=== PATIENT | female | born 1990 | race African-American/Black ===

== ENCOUNTER 2019-09-23 22:19 | Observation (INO) ==
--- OUTSIDE RECORDS SUMMARY | 2019-09-23 22:21 | External Medical Summary | Continuity of Care Document ---
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 GALINA Melchor Start: 09-May-2016 Quantity: 1 Refills: 0 Procedures Procedures not documented Immunizations Immunizations not documented Family History Unknown Family Member No pertinent family history (V41.89) (Z78.9) Status: Active Comments: Family History Social History - Smoking Status Never smoked tobacco Plan of Treatment Planned Observations Planned Goals not documented Results No Known Results Results not documented Encounters Appointment; Lin Melchor PA-C 07-Nov-2016 9:00 Encounter Diagnosis: Problem not documented
--- OUTSIDE RECORDS SUMMARY | 2019-09-23 22:22 | External Medical Summary | Continuity of Care Document ---
:1990 Author Name Roxi Valentin Address Unavailable Unavailable , Care Team Providers Name Role Phone [email or web address] [place] VALORIE Valentin, T Unavailable Unavailable Unavailable Unavailable [...] Unknown Family Member No pertinent family history (V48.89) (Z78.9) Status: Active Comments: Family History Social History - Smoking Status Never smoked tobacco Plan of Treatment Planned Observations Planned Goals not documented Results No Known Results Results not documented Encounters Appointment; Lin Melchor PA-C 07-Nov-2016 9:00 Encounter Diagnosis: Problem not documented
[2019-09-23] MEDS ORDERED: SODIUM CHLORIDE 0.9% 500 ML IV SCH (22:30)
[2019-09-23] MEDS ORDERED: dilTIAZem HCl 5 MG/ML 5 ML VIAL IV STA ×2 (22:32→23:01)
--- NOTE | 2019-09-23 22:32 | Emergency Department Note ---
History of Present Illness General Chief complaint: Arrhythmia/Palpitations Stated complaint: HEART RACING SOB Time Seen by Provider: 09/23/19 22:26 Source: patient Mode of arrival: ambulatory Limitations: no limitations History of Present Illness Maximum Pain Intensity: 6 The patient is a 29-year-old female who presented to the emergency department for evaluation of palpitations. The patient states that she started noticing palpitations with a fast heart rate at approximately 6 PM this evening. The patient was unloading groceries. She describes difficulty breathing with exertional dyspnea. She denies any specific chest discomfort. She denies having any leg swelling or leg pain. She has never had similar symptoms in the past. The patient was not seen by her primary care provider prior to arrival. The patient describes worsening symptoms with exertion but also has significant symptoms at rest. She is not had any recent travel or fever. She had no recent nausea vomiting or diarrhea. 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 and A total of 10 systems reviewed and were otherwise negative Physical Exam Vital Signs Vital Signs - 24 hr 09/23/19 22:23 09/23/19 22:34 09/23/19 22:37 Temperature 36.9 C Temperature Source Oral Pulse Rate 120 H 179 H 159 H Pulse Rate [Right Finger] Pulse Rate from SpO2 Sensor Respiratory Rate 20 22 19 Respiratory Effort / Characteristics Non-Labored Respiratory Depth Normal Blood Pressure 151/108 H 173/133 H Blood Pressure [Right Arm] Blood Pressure Mean 122 139 Blood Pressure Mean [Right Arm] Blood Pressure Position [Right Arm] Pulse Oximetry 93 Oxygen Delivery Method Room Air Sepsis Recent Fever Within 48 Hours No Sepsis Action Taken by Nursing No Action Required 09/23/19 22:40 09/23/19 22:42 09/23/19 22:46 Temperature Temperature Source Pulse Rate 157 H 117 H Pulse Rate [Right Finger] Pulse Rate from SpO2 Sensor 86 Respiratory Rate 13 21 Respiratory Effort / Characteristics Respiratory Depth Blood Pressure 139/86 Blood Pressure [Right Arm] Blood Pressure Mean 120 Blood Pressure Mean [Right Arm] Blood Pressure Position [Right Arm] Pulse Oximetry 99 97 Oxygen Delivery Method Room Air Sepsis Recent Fever Within 48 Hours Sepsis Action Taken by Nursing 09/23/19 22:50 09/23/19 23:00 09/23/19 23:01 Temperature Temperature Source Pulse Rate 99 H 129 H 122 H Pulse Rate [Right Finger] Pulse Rate from SpO2 Sensor 88 82 Respiratory Rate 23 22 16 Respiratory Effort / Characteristics Respiratory Depth Blood Pressure Blood Pressure [Right Arm] Blood Pressure Mean Blood Pressure Mean [Right Arm] Blood Pressure Position [Right Arm] Pulse Oximetry 97 100 100 Oxygen Delivery Method Sepsis Recent Fever Within 48 Hours Sepsis Action Taken by Nursing 09/23/19 23:02 09/23/19 23:09 09/23/19 23:10 Temperature Temperature Source Pulse Rate 135 H 112 H Pulse Rate [Right Finger] 124 H Pulse Rate from SpO2 Sensor 100 H 87 Respiratory Rate 21 22 19 Respiratory Effort / Characteristics Respiratory Depth Blood Pressure 116/95 Blood Pressure [Right Arm] 116/95 Blood Pressure Mean 99 Blood Pressure Mean [Right Arm] 102 Blood Pressure Position [Right Arm] Lying Pulse Oximetry 99 99 99 Oxygen Delivery Method Room Air Sepsis Recent Fever Within 48 Hours Sepsis Action Taken by Nursing 09/23/19 23:17 09/23/19 23:20 09/23/19 23:26 Temperature Temperature Source Pulse Rate 112 H 111 H 99 H Pulse Rate [Right Finger] 107 H Pulse Rate from SpO2 Sensor 91 H 92 H Respiratory Rate 21 19 15 Respiratory Effort / Characteristics Respiratory Depth Blood Pressure 130/107 H Blood Pressure [Right Arm] 130/107 H Blood Pressure Mean 112 Blood Pressure Mean [Right Arm] 114 Blood Pressure Position [Right Arm] Pulse Oximetry 98 97 98 Oxygen Delivery Method Sepsis Recent Fever Within 48 Hours Sepsis Action Taken by Nursing 09/23/19 23:30 09/23/19 23:32 09/23/19 23:35 Temperature Temperature Source Pulse Rate 104 H 119 H 117 H Pulse Rate [Right Finger] Pulse Rate from SpO2 Sensor Respiratory Rate 16 18 15 Respiratory Effort / Characteristics Respiratory Depth Blood Pressure 128/74 Blood Pressure [Right Arm] Blood Pressure Mean 103 Blood Pressure Mean [Right Arm] Blood Pressure Position [Right Arm] Pulse Oximetry 98 97 96 Oxygen Delivery Method Sepsis Recent Fever Within 48 Hours Sepsis Action Taken by Nursing 09/23/19 23:36 09/23/19 23:40 09/23/19 23:50 Temperature Temperature Source Pulse Rate 129 H 107 H 108 H Pulse Rate [Right Finger] Pulse Rate from SpO2 Sensor Respiratory Rate 18 16 27 H Respiratory Effort / Characteristics Respiratory Depth Blood Pressure Blood Pressure [Right Arm] Blood Pressure Mean Blood Pressure Mean [Right Arm] Blood Pressure Position [Right Arm] Pulse Oximetry 88 L 97 98 Oxygen Delivery Method Sepsis Recent Fever Within 48 Hours Sepsis Action Taken by Nursing 09/24/19 00:00 09/24/19 00:01 09/24/19 00:02 Temperature Temperature Source Pulse Rate 120 H 118 H Pulse Rate [Right Finger] 119 H Pulse Rate from SpO2 Sensor Respiratory Rate 15 18 19 Respiratory Effort / Characteristics Respiratory Depth Blood Pressure 117/87 Blood Pressure [Right Arm] 117/87 Blood Pressure Mean 93 Blood Pressure Mean [Right Arm] 97 Blood Pressure Position [Right Arm] Pulse Oximetry 98 100 99 Oxygen Delivery Method Sepsis Recent Fever Within 48 Hours Sepsis Action Taken by Nursing 09/24/19 00:10 09/24/19 00:30 09/24/19 00:31 Temperature Temperature Source Pulse Rate 117 H 99 H Pulse Rate [Right Finger] 108 H Pulse Rate from SpO2 Sensor Respiratory Rate 17 21 19 Respiratory Effort / Characteristics Respiratory Depth Blood Pressure 133/86 Blood Pressure [Right Arm] 133/86 Blood Pressure Mean 92 Blood Pressure Mean [Right Arm] 101 Blood Pressure Position [Right Arm] Pulse Oximetry 99 Oxygen Delivery Method Sepsis Recent Fever Within 48 Hours Sepsis Action Taken by Nursing 09/24/19 00:40 09/24/19 00:50 Temperature Temperature Source Pulse Rate 88 81 Pulse Rate [Right Finger] Pulse Rate from SpO2 Sensor Respiratory Rate 16 14 Respiratory Effort / Characteristics Respiratory Depth Blood Pressure Blood Pressure [Right Arm] Blood Pressure Mean Blood Pressure Mean [Right Arm] Blood Pressure Position [Right Arm] Pulse Oximetry Oxygen Delivery Method Sepsis Recent Fever Within 48 Hours Sepsis Action Taken by Nursing GENERAL: Patient is awake alert in no acute distress patient is resting comfortably and showing no signs of anxiety EYES: The conjunctivae are clear. The pupils are round and reactive. EARS, NOSE, MOUTH AND THROAT: The nose is without any evidence of any deformity. Mucous membranes are moist. NECK: The neck is nontender and supple. RESPIRATORY: Normal respiratory effort is noted there is no evidence of wheezing rhonchi or rales CARDIOVASCULAR: Irregular and tachycardic heart sounds were noted to auscultation. No definite murmur was noted. GASTROINTESTINAL: The abdomen is soft. Abdomen is nontender. MUSCULOSKELETAL/EXTREMITIES: There is no evidence of gross deformity full range of motion is noted in the hips and shoulders. SKIN: There is no obvious evidence of any rash. There are no petechiae, pallor or cyanosis noted. NEUROLOGIC: Patient is awake alert and oriented x3. Course Administered Medications Discontinued Medications Aspirin (Ecotrin Ectab) 81 mg PO NOW STA Stop: 09/24/19 01:47 Last Admin: 09/24/19 02:14 Dose: 81 mg Documented by: [id number] Diltiazem HCl (Cardizem) 10 mg IV NOW STA Stop: 09/23/19 22:33 Last Admin: 09/23/19 22:40 Dose: 10 mg Documented by: [id number] Cosigned by: [id number] Diltiazem HCl (Cardizem) 10 mg IV NOW STA Stop: 09/23/19 23:02 Last Admin: 09/23/19 23:07 Dose: 10 mg Documented by: [id number] Cosigned by: [id number] Enoxaparin Sodium (Lovenox) 40 mg SQ QAM JAYLON Stop: 10/24/19 08:59 Last Admin: 09/24/19 09:46 Dose: Not Given Documented by: [id number] Sodium Chloride (Nss) 500 mls @ 999 mls/hr IV .Q31M JAYLON Stop: 09/23/19 23:00 Last Infusion: 09/23/19 23:09 Dose: 0 mls/hr Documented by: [id number] Admin: 09/23/19 22:40 Dose: 999 mls/hr Documented by: [id number] Diltiazem HCl 125 mg/ Dextrose 125 mls @ 5 mls/hr IV .Q24H [facility]; Protocol Stop: 10/23/19 23:29 Last Titration: 09/24/19 01:04 Dose: 0 mg/hr, 0 mls/hr Documented by: [id number] Cosigned by: [id number] Admin: 09/23/19 23:41 Dose: 5 mg/hr, 5 mls/hr Documented by: [id number] Cosigned by: [id number] Magnesium Sulfate/Dextrose (Magnesium Sulfate / D5w) 1 gm in 100 mls @ 100 mls/hr IV ONE ONE Stop: 09/24/19 00:51 Last Infusion: 09/24/19 00:57 Dose: 0 mls/hr Documented by: [id number] Admin: 09/23/19 23:57 Dose: 100 mls/hr Documented by: [id number] Lactated Ringer's (Lr) 1,000 mls @ 80 mls/hr IV .[id number] ONE Stop: 09/24/19 14:15 Last Infusion: 09/24/19 14:59 Dose: 0 mls/hr Documented by: [id number] Admin: 09/24/19 02:14 Dose: 80 mls/hr Documented by: [id number] Ioversol (Optiray 320 125ml) 125 ml IV ONCE PRN PRN Reason: Interaction Checking Stop: 09/28/19 00:28 Last Admin: 09/24/19 00:29 Dose: 118 ml Documented by: [id number] Metoprolol Succinate (Toprol Xl) 25 mg PO QAM JAYLON Stop: 10/24/19 08:59 Last Admin: 09/24/19 07:59 Dose: 25 mg Documented by: [id number] Metoprolol Tartrate (Lopressor) 25 mg PO NOW STA Stop: 09/24/19 00:03 Last Admin: 09/24/19 00:07 Dose: 25 mg Documented by: [id number] Perflutren Lipid Microsphere (Definity) 2 ml IV ONCE ONE Stop: 09/24/19 08:04 Last Admin: 09/24/19 08:04 Dose: 2 ml Documented by: [id number] Critical Care Time Critical Care Time: Yes Total Critical Care Time: 45 I have personally spent greater than 45 minutes of critical care time in the direct management of this patient. This includes bedside care, interpretation of diagnostic studies, and testing, discussion with consultants, patient, and family members, and other required patient management activities. This 45 minutes is in excess of all separately billable procedures. Medical Decision Making Differential Diagnosis Premature contractions, electrolyte abnormality, cardiac dysrhythmia, thyroid dysfunction, pulmonary embolism, infection, gastrointestinal, as well as other pathologies. Medical Records Attestation: I reviewed the patient's medical records. Home Medications Current Medication List: was personally reviewed by me Laboratory Data Attestation: I reviewed the patient's lab results. Result diagrams: 09/24/19 05:39 09/24/19 05:39 Lab Results 09/23/19 09/23/19 09/23/19 Range/Units 22:35 22:35 22:35 WBC 9.99 (4.8-10.8) K/uL RBC 5.48 H (4.2-5.4) M/uL Hgb 15.4 (12.0-16.0) g/dL Hct 44.9 (37-47) % MCV 81.9 (80-100) fL MCH 28.1 (25-34) pg MCHC 34.3 (32-36) g/dL RDW Std Deviation 39.4 (36.4-46.3) fL RDW Coeff of Rinku 13.1 (11.5-14.5) % Plt Count 311 (130-400) K/uL MPV 10.5 H (7.4-10.4) fL Immature Gran % (Auto) 0.2 % Neut % (Auto) 57.1 % Lymph % (Auto) 33.4 % [place] % (Auto) 7.8 % Eos % (Auto) 1.1 % Baso % (Auto) 0.4 % Immature Gran # (Auto) 0.02 (0.00-0.02) K/uL Neut # (Auto) 5.70 (1.4-6.5) K/uL Lymph # (Auto) 3.34 (1.2-3.4) K/uL [place] # (Auto) 0.78 H (0.11-0.59) K/uL Eos # (Auto) 0.11 (0-0.5) K/uL Baso # (Auto) 0.04 (0-0.2) K/uL PT 10.8 (9.0-12.0) Seconds INR 1.0 (0.9-1.1) APTT 30.0 (21.0-31.0) Seconds PTT Ratio 1.1 Sodium 138 (136-145) mmol/L Potassium 4.0 (3.5-5.1) mmol/L Chloride 108 H (98-107) mmol/L Carbon Dioxide 26 (21-32) mmol/L Anion Gap 4.0 (3-11) BUN 12 (7-18) mg/dl Creatinine 0.86 (0.6-1.2) mg/dl Est Cr Clr Drug Dosing 161.1 ml/min Est GFR ( Amer) 105.8 Est GFR (Non-Af Amer) 91.3 BUN/Creatinine Ratio 13.5 (10-20) Glucose 89 (70-99) mg/dl Calcium 9.4 (8.5-10.1) mg/dl Magnesium 2.1 (1.8-2.4) mg/dl Total Bilirubin 0.4 (0.2-1) mg/dl AST 13 L (15-37) U/L ALT 23 (12-78) U/L Alkaline Phosphatase 70 (45-117) U/L Troponin I < 0.015 (0-0.045) ng/ml Total Protein 8.8 H (6.4-8.2) gm/dl Albumin 3.7 (3.4-5.0) gm/dl Globulin 5.1 H (2.5-4.0) gm/dl Albumin/Globulin Ratio 0.7 L (0.9-2) TSH 1.340 (0.300-4.500) uIu/ml HCG, Qual (Negative) Urine Color Urine Appearance (Clear) Urine pH (4.5-7.5) Ur Specific [place] (1.000-1.030) Urine Protein (Negative) Urine Glucose (UA) (Negative) Urine Ketones (Negative) Urine Blood (Negative) Urine Nitrite (Negative) Urine Bilirubin (Negative) Urine Urobilinogen (Negative) Ur Leukocyte Esterase (Negative) Urine WBC (Auto) (0-5) /hpf Urine RBC (Auto) (0-4) /hpf U Hyaline Cast (Auto) (0-5) /lpf U Epithel Cells (Auto) (0-5) /lpf Urine Bacteria (Auto) (Negative) Urine Opiates Screen (Neg) Ur Methadone, Qual (Neg) Urine Barbiturates (Neg) Ur Phencyclidine (PCP) (Neg) U Amphetamin/Meth Scrn (Neg) MDMA (Ecstasy) Screen (Neg) U Benzodiazepines Scrn (Neg) Ur Cocaine Metabolite (Neg) U Marijuana (THC) Screen (Neg) 09/23/19 09/23/19 09/23/19 Range/Units 22:35 Unknown Unknown WBC (4.8-10.8) K/uL RBC (4.2-5.4) M/uL Hgb (12.0-16.0) g/dL Hct (37-47) % MCV (80-100) fL MCH (25-34) pg MCHC (32-36) g/dL RDW Std Deviation (36.4-46.3) fL RDW Coeff of Rinku (11.5-14.5) % Plt Count (130-400) K/uL MPV (7.4-10.4) fL Immature Gran % (Auto) % Neut % (Auto) % Lymph % (Auto) % [place] % (Auto) % Eos % (Auto) % Baso % (Auto) % Immature Gran # (Auto) (0.00-0.02) K/uL Neut # (Auto) (1.4-6.5) K/uL Lymph # (Auto) (1.2-3.4) K/uL [place] # (Auto) (0.11-0.59) K/uL Eos # (Auto) (0-0.5) K/uL Baso # (Auto) (0-0.2) K/uL PT (9.0-12.0) Seconds INR (0.9-1.1) APTT (21.0-31.0) Seconds PTT Ratio Sodium (136-145) mmol/L Potassium (3.5-5.1) mmol/L Chloride (98-107) mmol/L Carbon Dioxide (21-32) mmol/L Anion Gap (3-11) BUN (7-18) mg/dl Creatinine (0.6-1.2) mg/dl Est Cr Clr Drug Dosing ml/min Est GFR ( Amer) Est GFR (Non-Af Amer) BUN/Creatinine Ratio (10-20) Glucose (70-99) mg/dl Calcium (8.5-10.1) mg/dl Magnesium (1.8-2.4) mg/dl Total Bilirubin (0.2-1) mg/dl AST (15-37) U/L ALT (12-78) U/L Alkaline Phosphatase (45-117) U/L Troponin I (0-0.045) ng/ml Total Protein (6.4-8.2) gm/dl Albumin (3.4-5.0) gm/dl Globulin (2.5-4.0) gm/dl Albumin/Globulin Ratio (0.9-2) TSH (0.300-4.500) uIu/ml HCG, Qual Negative (Negative) Urine Color Yellow Urine Appearance Clear (Clear) Urine pH 7.0 (4.5-7.5) Ur Specific [place] 1.014 (1.000-1.030) Urine Protein Negative (Negative) Urine Glucose (UA) Negative (Negative) Urine Ketones Negative (Negative) Urine Blood 2+ H (Negative) Urine Nitrite Negative (Negative) Urine Bilirubin Negative (Negative) Urine Urobilinogen Negative (Negative) Ur Leukocyte Esterase Trace H (Negative) Urine WBC (Auto) 1-5 (0-5) /hpf Urine RBC (Auto) 10-30 H (0-4) /hpf U Hyaline Cast (Auto) 0 (0-5) /lpf U Epithel Cells (Auto) >30 H (0-5) /lpf Urine Bacteria (Auto) Negative (Negative) Urine Opiates Screen Neg (Neg) Ur Methadone, Qual Neg (Neg) Urine Barbiturates Neg (Neg) Ur Phencyclidine (PCP) Neg (Neg) U Amphetamin/Meth Scrn Neg (Neg) MDMA (Ecstasy) Screen Neg (Neg) U Benzodiazepines Scrn Neg (Neg) Ur Cocaine Metabolite Neg (Neg) U Marijuana (THC) Screen Neg (Neg) Imaging Data Radiologist's Impression: SINGLE VIEW CHEST CLINICAL HISTORY: Generalized weakness. FINDINGS: An AP, portable, upright chest radiograph is obtained. No prior studies are available for comparison at the time of dictation. The examination is degraded by portable technique and large body habitus. The cardiomediastinal silhouette is unremarkable. The lungs and pleural spaces are clear. No pneumothorax is seen. The bony thorax is grossly intact. IMPRESSION: No active disease in the chest. ACT 112: Negative or not required by law. Electronically signed by: José Antonio Groves M.D. 09/23/2019 10:54 PM Dictated: 09/23/192252 Transcribed: 09/23/192252 ECG Data Attestation: I personally reviewed and interpreted this ECG as follows: Indication: + palpitations Rate (beats per minute): 153 Additional Comments: EKG was obtained in the emergency department. My interpretation is atrial fibrillation with rapid ventricular response. 153 bpm. There were no PVCs. There were no acute ST segment elevations noted. No previous tracing was available. Blood Pressure Blood Pressure Findings: Normal blood pressure Blood Pressure Disposition: further management by hospitalist MDM Narrative The patient is a 29-year-old female who presented to the emergency department for an evaluation of palpitations. The patient noted an acute onset of palpitations earlier today around 6 PM when she was unloading groceries. The symptoms have been constant. The patient was found to be in atrial fibrillation upon arrival to the emergency department. She was treated with IV fluids and IV Cardizem. She was also given IV magnesium. I discussed the patient's laboratory and radiographic studies with her. Given her age and comorbidities she is not at high risk for stroke but she has never had atrial fibrillation before and she continues to have a rapid ventricular response. She was then placed on Cardizem drip. I discussed her case with the on-call [facility] hospitalist group. They have agreed to evaluate the patient in the emergency department for further management and disposition. Impression & Plan Atrial fibrillation with rapid ventricular response, Palpitations, SOB (shortness of breath) Discharge Plan Visit Data *Final* Discharge Date/Time: 09/24/19 01:30 Chief Complaint: Arrhythmia/Palpitations Stated Complaint: HEART RACING SOB ED Provider: Miguelito Chinchilla Discharge Problem: Atrial fibrillation with rapid ventricular response, Palpitations, SOB (shortness of breath) Patient Disposition: Admitted As Inpatient Discharge Instructions Interventions: ED Discharge Assessment Last Done: 09/24/19 01:30
[2019-09-23 22:49] LABS: Basophils # (auto) 0.04 K/uL (0-0.2); Basophils % (auto) 0.4 %; Eosinophils # (auto) 0.11 K/uL (0-0.5); Eosinophils % (auto) 1.1 %; Hematocrit (blood only) 44.9 % (37-47); Hemoglobin 15.4 g/dL (12.0-16.0); Immature Granulocytes # (auto) 0.02 K/uL (0.00-0.02); Immature Granulocytes % (auto) 0.2 %; Lymphocytes # (auto) 3.34 K/uL (1.2-3.4); Lymphocytes % (auto) 33.4 %; Mean Corpuscular Hemoglobin 28.1 pg (25-34); Mean Corpuscular Hgb Conc 34.3 g/dL (32-36); Mean Corpuscular Volume 81.9 fL (80-100); Mean Platelet Volume 10.5 fL (7.4-10.4); Monocytes # (auto) 0.78 K/uL (0.11-0.59); Monocytes % (auto) 7.8 %; Neutrophils % (auto) 57.1 %; Platelet Count 311 K/uL (130-400); RDW Coefficient of Variation 13.1 % (11.5-14.5); RDW Standard Deviation 39.4 fL (36.4-46.3); Red Blood Count 5.48 M/uL (4.2-5.4); White Blood Count 9.99 K/uL (4.8-10.8)
--- NOTE | 2019-09-23 22:55 | XRay Report ---
SINGLE VIEW CHEST CLINICAL HISTORY: Generalized weakness. FINDINGS: An AP, portable, upright chest radiograph is obtained. No prior studies are available for c omparison at the time of dictation. The examination is degraded by portable technique and large body habitus. The cardiomediastinal silhouette is unremarkable. The lungs and pleural spaces are clear. N o pneumothorax is seen. The bony thorax is grossly intact. IMPRESSION: No active disease in the chest. ACT 112: Negative or not required by law. Electronically signed by: José Antonio Groves M.D. 09/23/2019 10:54 PM
[2019-09-23 23:03] LABS: Partial Thromboplastin Ratio 1.1; Prothrombin Time 10.8 Seconds (9.0-12.0)
[2019-09-23 23:07] LABS: Alanine Aminotransferase 23 U/L (12-78); Albumin Level 3.7 gm/dl (3.4-5.0); Aspartate Aminotransferase 13 U/L (15-37); BUN Creatinine Ratio 13.5 (10-20); Blood Urea Nitrogen 12 mg/dl (7-18); Calcium 9.4 mg/dl (8.5-10.1); Carbon Dioxide 26 mmol/L (21-32); Chloride 108 mmol/L (98-107); Creatinine Clr Calc Pharmacy 161.1 ml/min; Est GFR (African American) 105.8; Est GFR (Non-African American) 91.3; Glucose 89 mg/dl (70-99); Magnesium 2.1 mg/dl (1.8-2.4); Sodium 138 mmol/L (136-145)
[2019-09-23 23:08] LABS: Pregnancy Test, Serum Negative (Negative)
[2019-09-23 23:18] LABS: Albumin Globulin Ratio 0.7 (0.9-2); Alkaline Phosphatase 70 U/L (45-117); Bilirubin,Total 0.4 mg/dl (0.2-1); Globulin 5.1 gm/dl (2.5-4.0); Total Protein 8.8 gm/dl (6.4-8.2); Troponin I < 0.015 ng/ml (0-0.045)
[2019-09-23] MEDS ORDERED: dilTIAZem HCL 125 MG in DEXTROSE 5% 100 ML IV SCH (23:30)
[2019-09-23] MEDS ORDERED: STAT IV Infusion **Titration per Protocol STA (23:30)
[2019-09-23 23:31] LABS: Appearance Urine Clear (Clear); Bacteria Urine Automated Negative (Negative); Bilirubin Urine Negative (Negative); Blood Urine 2+ (Negative); Cast Urine Automated 0 /lpf (0-5); Color Urine Yellow; Epithelial Cell Urine Auto >30 /lpf (0-5); Glucose Urine UA Negative (Negative); Ketones Urine Negative (Negative); Leukocyte Esterase Urine Trace (Negative); Nitrite Urine Negative (Negative); Protein Urine Negative (Negative); Specific Gravity Urine 1.014 (1.000-1.030); Urobilinogen Urine Negative (Negative)
[2019-09-23] MEDS ORDERED: MAGNESIUM SULFATE / D5W 1 GM/100 ML BAG IV ONE (23:52)
[2019-09-24] MEDS ORDERED: METOPROLOL TARTRATE 25 MG TAB PO STA (00:02)
[2019-09-24] MEDS ORDERED: OPTIRAY 320 125ml IV PRN (00:29)
--- NOTE | 2019-09-24 01:10 | History & Physical Report ---
Date of Service September 24, 2019 Assessment & Plan (1) PAF (paroxysmal atrial fibrillation): Currently NSR at the ER after initial intervention Unclear precipitant OBS PCU Oral beta-namita for rate control TTE, Cardiology consult RE PAF Hold off on anticoagulation for now until patient seen by Cardiology given low [id number] score of at least 1. DVT prophylaxis. Lovenox subcu Full code Text document was generated using [employer] voice recognition software. It may contain grammatical or spelling errors. Kindly contact undersigned for clarification of any documentation item in question. History of Present Illness Chief Complaint: Palpitations, S OB Primary Care Provider: NO PCP History obtained from patient and records. No significant medical history. 3 years history of intermittent palpitations with shortness of breath, short- lived, usually on exertion and relieved by rest, may be occurring at a frequency of 3 times a year. No consultations done. Last night patient arrived home after doing groceries when she experienced palpitations and shortness of breath without chest pain. No unusual cough, fever, chills symptoms. No unusual stress. No inordinate caffeine intake. Patient noted to be in rapid A. fib upon arrival at the ER Cardizem bolus and drip started at the ER. Oral Lopressor given at the ER. Patient subsequently converted to normal sinus rhythm. Medical History as above Surgical History : None Family History : No heart disease, no stroke as per patient Personal/Social history : Non-smoker, occasional EtOH intake, [employer] employee Allergies Allergy/AdvReac Type Severity Reaction Status Date / Time pollen extracts Allergy Mild standard Verified 09/23/19 22:37 seasonal allergy symptoms Home Medications Home Medications Medication Instructions Recorded Confirmed Type No Known Home Medications 09/23/19 09/23/19 History Past Med/Surg History Social History (Updated 09/23/19 @ 22:32 by Miguelito Chinchilla DO) Preferred Language: Pashto Communication Ability: Effective Systems Support Specialist Required: No Beliefs That Will Affect Care: None Current Living Situation: Significant Other Other Information That Helps Us Care for You: No Feels Safe at Home: Yes Safety Concerns: Feels Safe At This Time Smoking Status: Never smoker Hx Alcohol Use: Yes Hx Substance Use: No Review of Systems Review of Systems: As per HPI, all 10 systems reviewed, all other ROS negative Physical Exam Physical Exam: GENERAL: Comfortable, pleasant, obese, no respiratory distress SKIN: Normal color, warm HEENT: [place] palpebral conjunctivae, no ptosis, dry buccal mucosa NECK : Supple, short neck, no tenderness CHEST : CTA, no tenderness HEART : RRR, no obvious murmurs ABDOMEN: Some distention, nontender EXTREMITIES : No LE swelling/tenderness, no other conspicuous deformities noted NEUROLOGIC : Coherent, no facial asymmetry, no other gross focality Results & Data Results & Data ([facility]) Vital Signs (Past 12 Hours) Vital Signs Temp Pulse Pulse Resp BP BP Pulse Ox 09/24/19 00:50 81 14 09/24/19 00:40 88 16 09/24/19 00:31 108 H 19 133/86 99 09/24/19 00:30 99 H 21 133/86 09/24/19 00:10 117 H 17 09/24/19 00:02 119 H 19 117/87 99 09/24/19 00:01 118 H 18 117/87 100 09/24/19 00:00 120 H 15 98 09/23/19 23:50 108 H 27 H 98 09/23/19 23:40 107 H 16 97 09/23/19 23:36 129 H 18 88 L 09/23/19 23:35 117 H 15 128/74 96 09/23/19 23:32 119 H 18 97 09/23/19 23:30 104 H 16 98 09/23/19 23:26 99 H 107 H 15 130/107 H 130/107 H 98 09/23/19 23:20 111 H 19 97 09/23/19 23:17 112 H 21 98 09/23/19 23:10 112 H 19 116/95 99 09/23/19 23:09 124 H 22 116/95 99 09/23/19 23:02 135 H 21 99 09/23/19 23:01 122 H 16 100 09/23/19 23:00 129 H 22 100 09/23/19 22:50 99 H 23 97 09/23/19 22:46 117 H 21 139/86 97 09/23/19 22:42 99 09/23/19 22:40 157 H 13 09/23/19 22:37 159 H 19 09/23/19 22:34 179 H 22 173/133 H 09/23/19 22:23 36.9 C 120 H 20 151/108 H 93 Laboratory Results Laboratory Results WBC 9.99 K/uL (4.8-10.8) 09/23/19 22: RBC 5.48 M/uL (4.2-5.4) H 09/23/19 22:35 Hgb 15.4 g/dL (12.0-16.0) 09/23/19 22: Hct 44.9 % (37-47) 09/23/19 22: MCV 81.9 fL (80-100) 09/23/19 22: MCH 28.1 pg (25-34) 09/23/19 22: MCHC 34.3 g/dL (32-36) 09/23/19 22: RDW Std Deviation 39.4 fL (36.4-46.3) 09/23/19: RDW Coeff of Rinku 13.1 % (11.5-14.5) 09/23/19: Plt Count 311 K/uL (130-400) 09/23/19: MPV 10.5 fL (7.4-10.4) H 09/23/19 22:35 Immature Gran % (Auto) 0.2 % 09/23/19 22:35 Neut % (Auto) 57.1 % 09/23/19 22:35 Lymph % (Auto) 33.4 % 09/23/19 22:35 [place] % (Auto) 7.8 % 09/23/19 22:35 Eos % (Auto) 1.1 % 09/23/19:35 Baso % (Auto) 0.4 % 09/23/19:35 Immature Gran # (Auto) 0.02 K/uL (0.00-0.02) 09/23/19 22:35 Neut # (Auto) 5.70 K/uL (1.4-6.5) 09/23/19 22:35 Lymph # (Auto) 3.34 K/uL (1.2-3.4) 09/23/19 22:35 [place] # (Auto) 0.78 K/uL (0.11-0.59) H 09/23/19 22:35 Eos # (Auto) 0.11 K/uL (0-0.5) 09/23/19 22:35 Baso # (Auto) 0.04 K/uL (0-0.2) 09/23/19 22:35 PT 10.8 Seconds (9.0-12.0) 09/23/19 22:35 INR 1.0 (0.9-1.1) 09/23/19 22:35 APTT 30.0 Seconds (21.0-31.0) 09/23/19 22:35 PTT Ratio 1.1 09/23/19 22:35 Sodium 138 mmol/L (136-145) 09/23/19 22:35 Potassium 4.0 mmol/L (3.5-5.1) 09/23/19 22:35 Chloride 108 mmol/L (98-107) H 09/23/19 22:35 Carbon Dioxide 26 mmol/L (21-32) 09/23/19 22:35 Anion Gap 4.0 (3-11) 09/23/19 22:35 BUN 12 mg/dl (7-18) 09/23/19 22:35 Creatinine 0.86 mg/dl (0.6-1.2) 09/23/19 22:35 Est Cr Clr Drug Dosing 161.1 ml/min 09/23/19 22:35 Est GFR ( Amer) 105.8 09/23/19 22:35 Est GFR (Non-Af Amer) 91.3 09/23/19 22:35 BUN/Creatinine Ratio 13.5 (10-20) 09/23/19 22:35 Glucose 89 mg/dl (70-99) 09/23/19 22:35 Calcium 9.4 mg/dl (8.5-10.1) 09/23/19 22:35 Magnesium 2.1 mg/dl (1.8-2.4) 09/23/19 22:35 Total Bilirubin 0.4 mg/dl (0.2-1) 09/23/19 22:35 AST 13 U/L (15-37) L 09/23/19 22:35 ALT 23 U/L (12-78) 09/23/19 22:35 Alkaline Phosphatase 70 U/L (45-117) 09/23/19 22:35 Troponin I < 0.015 ng/ml (0-0.045) 09/23/19 22:35 Total Protein 8.8 gm/dl (6.4-8.2) H 09/23/19 22:35 Albumin 3.7 gm/dl (3.4-5.0) 09/23/19 22:35 Globulin 5.1 gm/dl (2.5-4.0) H 09/23/19 22:35 Albumin/Globulin Ratio 0.7 (0.9-2) L 09/23/19 22:35 TSH 1.340 uIu/ml (0.300-4.500) 09/23/19 22:35 HCG, Qual Negative (Negative) 09/23/19 22:35 Urine Color Yellow 09/23/19 Unknown Urine Appearance Clear (Clear) 09/23/19 Unknown Urine pH 7.0 (4.5-7.5) 09/23/19 Unknown Ur Specific [place] 1.014 (1.000-1.030) 09/23/19 Unknown Urine Protein Negative (Negative) 09/23/19 Unknown Urine Glucose (UA) Negative (Negative) 09/23/19 Unknown Urine Ketones Negative (Negative) 09/23/19 Unknown Urine Blood 2+ (Negative) H 09/23/19 Unknown Urine Nitrite Negative (Negative) 09/23/19 Unknown Urine Bilirubin Negative (Negative) 09/23/19 Unknown Urine Urobilinogen Negative (Negative) 09/23/19 Unknown Ur Leukocyte Esterase Trace (Negative) H 09/23/19 Unknown Urine WBC (Auto) 1-5 /hpf (0-5) 09/23/19 Unknown Urine RBC (Auto) 10-30 /hpf (0-4) H 09/23/19 Unknown U Hyaline Cast (Auto) 0 /lpf (0-5) 09/23/19 Unknown U Epithel Cells (Auto) >30 /lpf (0-5) H 09/23/19 Unknown Urine Bacteria (Auto) Negative (Negative) 09/23/[address] chest initial read suboptimal opacification of the peripheral arteries. No pulmonary embolism visualized. Clear lungs. EKG as per my interpretation : Rate 150, A. fib, normal axis, no ischemia, [place] WP
[2019-09-24] MEDS ORDERED: ACETAMINOPHEN 325 MG TAB PO PRN (01:46)
[2019-09-24] MEDS ORDERED: LACTATED RINGER'S 1,000 ML IV ONE (01:46)
[2019-09-24] MEDS ORDERED: NITROGLYCERIN SL 0.4 MG/TAB TAB SL PRN (01:46)
[2019-09-24] MEDS ORDERED: ASPIRIN 81 MG ECTAB PO STA (01:46)
[2019-09-24] MEDS ORDERED: PROMETHAZINE HCL 12.5 MG in SODIUM CHLORIDE 0.9% 50 ML IV PRN (01:46)
[2019-09-24] MEDS ORDERED: TRAMADOL HCL 50 MG TABLET PO PRN (01:46)
[2019-09-24 02:17] LABS: Amphetamines+Metham, Urine Neg (Neg); Barbiturates, Urine Neg (Neg); Benzodiazepine, Urine Neg (Neg); Cocaine, Urine Neg (Neg); MDMA (Ecstacy), Urine Neg (Neg); Methadone, Urine Neg (Neg); Opiate, Urine Neg (Neg); Phencyclidine, Urine Neg (Neg)
[2019-09-24 05:53] LABS: Basophils # (auto) 0.04 K/uL (0-0.2); Basophils % (auto) 0.4 %; Eosinophils # (auto) 0.13 K/uL (0-0.5); Eosinophils % (auto) 1.3 %; Hematocrit (blood only) 41.4 % (37-47); Immature Granulocytes # (auto) 0.02 K/uL (0.00-0.02); Immature Granulocytes % (auto) 0.2 %; Lymphocytes % (auto) 32.6 %; Mean Corpuscular Hemoglobin 27.7 pg (25-34); Mean Corpuscular Hgb Conc 33.8 g/dL (32-36); Mean Platelet Volume 10.2 fL (7.4-10.4); Monocytes # (auto) 0.86 K/uL (0.11-0.59); Monocytes % (auto) 8.8 %; Neutrophils # (auto) 5.56 K/uL (1.4-6.5); Neutrophils % (auto) 56.7 %; Platelet Count 320 K/uL (130-400); RDW Coefficient of Variation 13.3 % (11.5-14.5); Red Blood Count 5.05 M/uL (4.2-5.4); White Blood Count 9.81 K/uL (4.8-10.8)
[2019-09-24 06:24] LABS: BUN Creatinine Ratio 14.4 (10-20); Blood Urea Nitrogen 10 mg/dl (7-18); Calcium 8.8 mg/dl (8.5-10.1); Carbon Dioxide 25 mmol/L (21-32); Chloride 108 mmol/L (98-107); Est GFR (Non-African American) 111.3; Glucose 80 mg/dl (70-99); Sodium 136 mmol/L (136-145)
[2019-09-24 06:28] LABS: Troponin I < 0.015 ng/ml (0-0.045)
--- NOTE | 2019-09-24 07:44 | CT Scan Report ---
CT angio chest PE protocol CT DOSE: 1165.77 mGy.cm HISTORY: 29 years-old Female with PE. Acute shortness of breath with irregular heart rate TECHNIQUE: Multiple CTA images of the chest were obtained after the intravenous administration of 118 ml Optiray 320. Coronal and sagittal MIPS were obtained from the axial data set and were submitted for review. All measurements were obtained according to NASCET criteria. A dose lowering technique w as utilized adhering to the principles of ALARA. COMPARISON: Chest radiograph of same day. FINDINGS: CTA: The heart is upper limits of normal in size. No pericardial effusion or coronary artery calcification s identified. No thoracic aortic aneurysm or dissection. Patency of the visualized proximal great ves sels. The pulmonary arterial tree is suboptimally opacified, large volume of the contrast bolus is pr esent within the SVC and left brachiocephalic vein. Pulmonary artery is opacified to the level of the main branches. No central pulmonary embolus identified. CT CHEST: Soft tissue density of the anterior mediastinum is suggestive of residual thymic tissue. Unremarkable thyroid. No definite adenopathy. No pneumothorax, pleural effusion, airspace consolidation or overt pulmonary edema. 4 mm solid nodule the basal left lower lobe, image 103 series 4 is likely benign in a patient of this age group. There are a few subpleural solid nodules of the right lower lobe measuri ng up to 3 mm which are also likely benign. Central airways appear patent. No acute process of the imaged upper abdomen. Soft tissues are unremarkable. Bones appear intact. IMPRESSION: 1. No acute intrathoracic abnormality identified. 2. Limited evaluation of the pulmonary arterial tree secondary to contrast bolus timing. No central p ulmonary emboli identified. 3. No adenopathy, pleural effusion or airspace consolidation to suggest pneumonia. ACT 112: Negative or not required by law. The above report was generated using voice recognition software. It may contain grammatical, syntax o r spelling errors. Electronically signed by: Yvon Hurst M.D. 09/24/2019 7:43 AM
[2019-09-24] MEDS ORDERED: PERFLUTREN LIPID MICROSPHERE (DEFINITY) IV ONE (08:03)
[2019-09-24] MEDS ORDERED: METOPROLOL SUCC 25MG EXT REL TAB PO SCH (09:00)
[2019-09-24] MEDS ORDERED: ENOXAPARIN INJ 40 MG/0.4 ML SYR SQ SCH (09:00)
--- NOTE | 2019-09-24 12:29 | Electrocardiogram Report ---
Test Reason : Blood Pressure : / mmHG Vent. Rate : 153 BPM Atrial Rate : 174 BPM P-R Int : 000 ms QRS Dur : 086 ms QT Int : 276 ms P-R-T Axes : 000 002 053 degrees QTc Int : 440 ms Poor data quality, interpretation may be adversely affected Atrial fibrillation with rapid ventricular response Abnormal ECG No previous ECGs available Confirmed by Edwin Elias ([id number]) on 09/24/2019 12:28:58 PM Referred By: REFERRED SELF Confirmed By:Edwin Elias
--- NOTE | 2019-09-24 12:30 | Electrocardiogram Report ---
Test Reason : Blood Pressure : / mmHG Vent. Rate : 082 BPM Atrial Rate : 082 BPM P-R Int : 154 ms QRS Dur : 088 ms QT Int : 338 ms P-R-T Axes : 029 015 014 degrees QTc Int : 394 ms Normal sinus rhythm with sinus arrhythmia Normal ECG When compared with ECG of 23-SEP-2019 22:31, Sinus rhythm has replaced Atrial fibrillation Vent. rate has decreased BY 71 BPM Confirmed by Edwin Elias ([id number]) on 09/24/2019 12:29:56 PM Referred By: REFERRED SELF Confirmed By:Edwin Elias
--- NOTE | 2019-09-24 13:58 | Cardiology Consultation ---
Date of Consultation September 24, 2019 Assessment & Plan (1) Atrial fibrillation with rapid ventricular response: It was my pleasure to see Ms. Weiss in consultation today. The pathophysiology and treatment options for atrial fibrillation were discussed with her at great length today including her chads vas score of 0 which relates an annual risk of cardioembolic event at <1%. She was also counseled that I believe her weight is a contributing factor along with the possibility of possibly obstructive sleep apnea. Now that she is back in normal sinus rhythm and feeling well I believe the most prudent course of action would be to discharge her with metoprolol succinate 25 mg p.o. daily. Given her chads vas score of 0 I do not believe anticoagulation is necessary at this time and she agrees with this. My office will call to arrange follow-up with me as an outpatient in 1 month. Okay to discharge to home from a cardiac standpoint. In reviewing her EKG I am also concerned about a possible delta wave and further work-up will be completed as an outpatient. History of Present Illness Reason for Consultation: Atrial fibrillation with rapid ventricular response Requesting Physician: Dr. Mitchell Attending Physician: Héctor Murray MD History of Present Illness It was my pleasure to see Ms. Weiss in consultation today September 24, 2019. She is a very pleasant 29-year-old woman who is not known to our cardiology practice. She presented to [facility] on 09/23/2019 with complaints of palpitations. She states that in the evening of the she was unloading groceries when she suddenly started to feel her heart racing. She states that she can feel it beating very fast in her chest and she became dyspneic if she tried to walk. She states that she had a similar episode approximately a year ago however that episode was very fleeting in nature and this episode persisted. She states that she sat down and try to relax for a few hours however the palpitations persisted at which point she became concerned and came to the emergency department. In the ER she was found to be in atrial fibrillation with rapid ventricular response she was given IV Cardizem and p.o. metoprolol and she spontaneously converted to normal sinus rhythm on her own. She states as soon as she converted she could feel the difference in her symptoms resolved. Currently she states that she feels great and back to her normal health. She denies any changes as of late. She has not started any new medications or supplements. She is not a significant jairo of alcohol or caffeine. She states that she does snore while sleeping but is not somnolent during the day. Allergies Allergy/AdvReac Type Severity Reaction Status Date / Time pollen extracts Allergy Mild standard Verified 09/23/19 22:37 seasonal allergy symptoms Home Medications Home Medications Medication Instructions Recorded Confirmed Type No Known Home Medications 09/23/19 09/23/19 History Patient History Social History Preferred Language: Czech Communication Ability: Effective Fisheries Specialist Required: No Beliefs That Will Affect Care: None Current Living Situation: Significant Other Other Information That Helps Us Care for You: No Feels Safe at Home: Yes Safety Concerns: Feels Safe At This Time Smoking Status: Never smoker Hx Alcohol Use: Yes Hx Substance Use: No Review of Systems 2 Review of Systems: All systems reviewed & are unremarkable except as noted in HPI & below Physical Exam Physical Exam: Physical Exam: General: Awake, alert and oriented x 3. No acute distress. HEENT: Normocephalic, atraumatic. Pupils equal, round and reactive to light and accommodation. Extraocular muscles are intact. Anicteric sclera. Moist mucous membranes. Neck: No JVD. No bruit. Cardiovascular: Regular. No S-4. Normal S-1 and S-2. No S-3. No murmurs, rubs or gallops. Pulmonary: Clear to auscultation bilaterally. No rales, rhonchi, or wheezing. Abdomen: Bowel sounds x 4, soft. No rebound, guarding or tenderness. No organomegaly. Extremities: No clubbing, cyanosis or edema. +2 pedal pulses bilaterally. Skin: Warm and dry. Results & Data ([facility]) Vital Signs (Past 12 Hours) Vital Signs Temp Pulse Resp BP Pulse Ox 09/24/19 11:00 36.7 C 69 18 138/87 98 09/24/19 07:53 37.0 C 82 18 122/87 97 09/24/19 04:25 37.0 C 84 18 137/83 97 09/24/19 01:48 37 C 75 18 125/83 96
--- NOTE | 2019-09-24 16:07 | Hospitalist Progress Note ---
Date of Service September 24, 2019 Assessment & Plan (1) PAF (paroxysmal atrial fibrillation): patient was given Cardizem at the ER, converted to sinus rhythm started on Metoprolol succinate 25mg daily, remained in sinus rhythm since echo: normal study Ct angio: no pulmonary embolism, pneumonia evaluated by Appliance Sales Associate Dr. 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, HR 80s remained in SR since this morning resting, sitting up in bed, in good spirits, comfortable states she feels much better overall no chest pain, palpitations, dyspnea, nausea, dizziness ambulating to the bathroom with no problems no other symptoms Review of Systems Review of Systems: All systems reviewed & are unremarkable except as noted in HPI & below Physical Exam Physical Exam: General- oriented x 3, not in distress, speaks in sentences with no effort or accessory muscle use Head- atraumatic Eyes- PERRL, EOMI, anicteric ENT- oropharynx clear Neck- supple, no JVD, no adenopathy, no thyromegaly; carotids +2/2, no bruits appreciated Lungs- clear to auscultation bilaterally, no rales/wheezes Heart- normal rate, regular rhythm; no murmur, no gallop, no rub appreciated Abdomen- normal bowel sounds, nondistended, soft, nontender, no masses or hepatosplenomegaly Extremities- no pretibial edema, no calf tenderness; peripheral pulses intact Neuro- alert, oriented x 3; CN 2-12 grossly intact; motor 5/5 bilaterally;sensation 100% on all extremities; no other gross focal neurologic deficits Skin- warm & dry Results & Data Results & Data ([facility]) Vital Signs (Past 12 Hours) Vital Signs Temp Pulse Resp BP Pulse Ox 09/24/19 14:47 36.7 C 69 18 138/87 98 09/24/19 11:00 36.7 C 69 18 138/87 98 09/24/19 07:53 37.0 C 82 18 122/87 97 09/24/19 04:25 37.0 C 84 18 137/83 97 Laboratory Results Laboratory Results - last 24 hr 09/23/19 09/23/19 09/23/19 22:35 22:35 22:35 WBC 9.99 RBC 5.48 H Hgb 15.4 Hct 44.9 MCV 81.9 MCH 28.1 MCHC 34.3 RDW Std Deviation 39.4 RDW Coeff of Rinku 13.1 Plt Count 311 MPV 10.5 H Immature Gran % (Auto) 0.2 Neut % (Auto) 57.1 Lymph % (Auto) 33.4 [place] % (Auto) 7.8 Eos % (Auto) 1.1 Baso % (Auto) 0.4 Immature Gran # (Auto) 0.02 Neut # (Auto) 5.70 Lymph # (Auto) 3.34 [place] # (Auto) 0.78 H Eos # (Auto) 0.11 Baso # (Auto) 0.04 PT 10.8 INR 1.0 APTT 30.0 PTT Ratio 1.1 Sodium 138 Potassium 4.0 Chloride 108 H Carbon Dioxide 26 Anion Gap 4.0 BUN 12 Creatinine 0.86 Est Cr Clr Drug Dosing 161.1 Est GFR ( Amer) 105.8 Est GFR (Non-Af Amer) 91.3 BUN/Creatinine Ratio 13.5 Glucose 89 Calcium 9.4 Magnesium 2.1 Total Bilirubin 0.4 AST 13 L ALT 23 Alkaline Phosphatase 70 Troponin I < 0.015 Total Protein 8.8 H Albumin 3.7 Globulin 5.1 H Albumin/Globulin Ratio 0.7 L TSH 1.340 HCG, Qual Urine Color Urine Appearance Urine pH Ur Specific [place] Urine Protein Urine Glucose (UA) Urine Ketones Urine Blood Urine Nitrite Urine Bilirubin Urine Urobilinogen Ur Leukocyte Esterase Urine WBC (Auto) Urine RBC (Auto) U Hyaline Cast (Auto) U Epithel Cells (Auto) Urine Bacteria (Auto) Urine Opiates Screen Ur Methadone, Qual Urine Barbiturates Ur Phencyclidine (PCP) U Amphetamin/Meth Scrn MDMA (Ecstasy) Screen U Benzodiazepines Scrn Ur Cocaine Metabolite U Marijuana (THC) Screen 09/23/19 09/23/19 09/23/19 22:35 Unknown Unknown WBC RBC Hgb Hct MCV MCH MCHC RDW Std Deviation RDW Coeff of Rinku Plt Count MPV Immature Gran % (Auto) Neut % (Auto) Lymph % (Auto) [place] % (Auto) Eos % (Auto) Baso % (Auto) Immature Gran # (Auto) Neut # (Auto) Lymph # (Auto) [place] # (Auto) Eos # (Auto) Baso # (Auto) PT INR APTT PTT Ratio Sodium Potassium Chloride Carbon Dioxide Anion Gap BUN Creatinine Est Cr Clr Drug Dosing Est GFR ( Amer) Est GFR (Non-Af Amer) BUN/Creatinine Ratio Glucose Calcium Magnesium Total Bilirubin AST ALT Alkaline Phosphatase Troponin I Total Protein Albumin Globulin Albumin/Globulin Ratio TSH HCG, Qual Negative Urine Color Yellow Urine Appearance Clear Urine pH 7.0 Ur Specific [place] 1.014 Urine Protein Negative Urine Glucose (UA) Negative Urine Ketones Negative Urine Blood 2+ H Urine Nitrite Negative Urine Bilirubin Negative Urine Urobilinogen Negative Ur Leukocyte Esterase Trace H Urine WBC (Auto) 1-5 Urine RBC (Auto) 10-30 H U Hyaline Cast (Auto) 0 U Epithel Cells (Auto) >30 H Urine Bacteria (Auto) Negative Urine Opiates Screen Neg Ur Methadone, Qual Neg Urine Barbiturates Neg Ur Phencyclidine (PCP) Neg U Amphetamin/Meth Scrn Neg MDMA (Ecstasy) Screen Neg U Benzodiazepines Scrn Neg Ur Cocaine Metabolite Neg U Marijuana (THC) Screen Neg 09/24/19 09/24/19 05:39 05:39 WBC 9.81 RBC 5.05 Hgb 14.0 Hct 41.4 MCV 82.0 MCH 27.7 MCHC 33.8 RDW Std Deviation 40.0 RDW Coeff of Rinku 13.3 Plt Count 320 MPV 10.2 Immature Gran % (Auto) 0.2 Neut % (Auto) 56.7 Lymph % (Auto) 32.6 [place] % (Auto) 8.8 Eos % (Auto) 1.3 Baso % (Auto) 0.4 Immature Gran # (Auto) 0.02 Neut # (Auto) 5.56 Lymph # (Auto) 3.20 [place] # (Auto) 0.86 H Eos # (Auto) 0.13 Baso # (Auto) 0.04 PT INR APTT PTT Ratio Sodium 136 Potassium 4.0 Chloride 108 H Carbon Dioxide 25 Anion Gap 3.0 BUN 10 Creatinine 0.73 Est Cr Clr Drug Dosing 190.0 Est GFR ( Amer) 129.0 Est GFR (Non-Af Amer) 111.3 BUN/Creatinine Ratio 14.4 Glucose 80 Calcium 8.8 Magnesium Total Bilirubin AST ALT Alkaline Phosphatase Troponin I < 0.015 Total Protein Albumin Globulin Albumin/Globulin Ratio TSH HCG, Qual Urine Color Urine Appearance Urine pH Ur Specific [place] Urine Protein Urine Glucose (UA) Urine Ketones Urine Blood Urine Nitrite Urine Bilirubin Urine Urobilinogen Ur Leukocyte Esterase Urine WBC (Auto) Urine RBC (Auto) U Hyaline Cast (Auto) U Epithel Cells (Auto) Urine Bacteria (Auto) Urine Opiates Screen Ur Methadone, Qual Urine Barbiturates Ur Phencyclidine (PCP) U Amphetamin/Meth Scrn MDMA (Ecstasy) Screen U Benzodiazepines Scrn Ur Cocaine Metabolite U Marijuana (THC) Screen
--- NOTE | 2019-09-24 16:14 | Discharge Summary ---
Date of Service September 24, 2019 Admission HPI Per Admitting Provider History obtained from patient and records. No significant medical history. 3 years history of intermittent palpitations with shortness of breath, short- lived, usually on exertion and relieved by rest, may be occurring at a frequency of 3 times a year. No consultations done. Last night patient arrived home after doing groceries when she experienced palpitations and shortness of breath without chest pain. No unusual cough, fever, chills symptoms. No unusual stress. No inordinate caffeine intake. Patient noted to be in rapid A. fib upon arrival at the ER Cardizem bolus and drip started at the ER. Oral Lopressor given at the ER. Patient subsequently converted to normal sinus rhythm. Medical History as above Surgical History : None Family History : No heart disease, no stroke as per patient Personal/Social history : Non-smoker, occasional EtOH intake, [employer] employee Admission Exam Per Admitting Provider GENERAL: Comfortable, pleasant, obese, no respiratory distress SKIN: Normal color, warm HEENT: [place] palpebral conjunctivae, no ptosis, dry buccal mucosa NECK : Supple, short neck, no tenderness CHEST : CTA, no tenderness HEART : RRR, no obvious murmurs ABDOMEN: Some distention, nontender EXTREMITIES : No LE swelling/tenderness, no other conspicuous deformities noted NEUROLOGIC : Coherent, no facial asymmetry, no other gross focality Principal Diagnosis Atrial Fibrillation with Rapid Ventricular Response Discharge Exam General- oriented x 3, not in distress, speaks in sentences with no effort or accessory muscle use Head- atraumatic Eyes- PERRL, EOMI, anicteric ENT- oropharynx clear Neck- supple, no JVD, no adenopathy, no thyromegaly; carotids +2/2, no bruits appreciated Lungs- clear to auscultation bilaterally, no rales/wheezes Heart- normal rate, regular rhythm; no murmur, no gallop, no rub appreciated Abdomen- normal bowel sounds, nondistended, soft, nontender, no masses or hepatosplenomegaly Extremities- no pretibial edema, no calf tenderness; peripheral pulses intact Neuro- alert, oriented x 3; CN 2-12 grossly intact; motor 5/5 bilaterally;sensation 100% on all extremities; no other gross focal neurologic deficits Skin- warm & dry Discharge Data Allergies Allergy/AdvReac Type Severity Reaction Status Date / Time pollen extracts Allergy Mild standard Verified 09/23/19 22:37 seasonal allergy symptoms Consultations 09/23/19 23:52 ED Decision to Admit Stat 09/24/19 01:46 Consult Cardiology Routine Ordered Studies 09/24/19 00:02 CT angio chest PE protocol [facility] [place], [place] [phone] CT Scan Report Patient: LEE ANN TINSLEY EAdmit Date: 09/24/19 MR#: [id number]: [address] Acct ID:[id number]: Date: 1990City Zip: [place] [address] Age: 29Location: 2S Sex: F Room/Bed: [facility] Att Phy: Héctor Murray MDDiagnosis: PAF Nadia Phy: PCP,NOService Date: 09/24/19 Fam Phy:Interpreting Phy: Kamlesh Hurst Admit Phy: Indra Macedo MD Ordering Phy: Indra Macedo MD cc: ~ CT angio chest PE protocol CT DOSE: 1165.77 mGy.cm HISTORY: 29 years-old Female with PE. Acute shortness of breath with irregular heart rate TECHNIQUE: Multiple CTA images of the chest were obtained after the intravenous administration of 118 ml Optiray 320. Coronal and sagittal MIPS were obtained from the axial data set and were submitted for review. All measurements were obtained according to NASCET criteria. A dose lowering technique was utilized adhering to the principles of ALARA. COMPARISON: Chest radiograph of same day. FINDINGS: CTA: The heart is upper limits of normal in size. No pericardial effusion or coronary artery calcifications identified. No thoracic aortic aneurysm or dissection. Patency of the visualized proximal great vessels. The pulmonary arterial tree is suboptimally opacified, large volume of the contrast bolus is present within the SVC and left brachiocephalic vein. Pulmonary artery is opacified to the level of the main branches. No central pulmonary embolus identified. CT CHEST: Soft tissue density of the anterior mediastinum is suggestive of residual thymic tissue. Unremarkable thyroid. No definite adenopathy. No pneumothorax, pleural effusion, airspace consolidation or overt pulmonary edema. 4 mm solid nodule the basal left lower lobe, image 103 series 4 is likely benign in a patient of this age group. There are a few subpleural solid nodules of the right lower lobe measuring up to 3 mm which are also likely benign. Central airways appear patent. No acute process of the imaged upper abdomen. Soft tissues are unremarkable. Bones appear intact. IMPRESSION: 1. No acute intrathoracic abnormality identified. 2. Limited evaluation of the pulmonary arterial tree secondary to contrast bolus timing. No central pulmonary emboli identified. 3. No adenopathy, pleural effusion or airspace consolidation to suggest pneumonia. Hospital Course (1) Atrial fibrillation with rapid ventricular response: Atrial Fibrillation in Rapid Ventricular Response patient was given Cardizem at the ER, converted to sinus rhythm started on Metoprolol succinate 25mg daily, remained in sinus rhythm since echo: normal study Ct angio: no central pulmonary embolism, pneumonia evaluated by [facility] Dr. Mattson possible risk factors for afib- obesity, underlying obstructive sleep apnea CHADSVASc score 0- anticoagulation not recommended continue Metoprolol succinate 25 mg po daily ff up with [facility] in 4 weeks PCP in 1 week Pulmonary Nodules seen on CT angio: 4 mm solid nodule the basal left lower lobe, image 103 series 4 is likely benign in a patient of this age group. There are a few subpleural solid nodules of the right lower lobe measuring up to 3 mm which are also likely benign. -- follow as outpatient case and plan of care discussed with patient in detail and at length all questions answered she is understanding, agreeable, and comfortable with the plan of care Total Time Total Time Spent Total Time Spent (In Minutes): 45 minutes Discharge Plan Discharge Items Patient Disposition: Home - Self-Care Reason For Visit: PAF Discharge Diagnosis: ATRIAL FIBRILLATION (IRREGULAR HEARTBEAT) Activity: As commented below Activity Comment: RESUME ACTIVITY GRADUALLY TOLERATED, NO HEAVY EXERTION Lifting: Wait until after follow-up appointment Exercise/Sports: Wait until after follow-up appointment Driving/Machine Use: NO DRIVING UNTIL EVALUATED AND ALLOWED BY PRIMARY CARE PHYSICIAN Non-emergency contact: Primary Care Provider Call non-emergency contact if: you have any medication questions and you have a fever Follow-up/Referrals: Delta Mattson DO [Physician] - Giuliano Srinivasan DO [Outside Practitioners] - 09/28/19 10:20 am (09/28/2019 10:20 AM Giuliano Srinivasan DO [address], [place] To contact office, call [phone] ) Diet: Heart Healthy Addtl Attending Provider Instructions: Your new medications is Metoprolol succinate 25mg by mouth daily. This is the treatment for your condition- atrial fibrillation (irregular heartbeat). Drink plenty of fluids, stay well hydrated. No caffeinated drinks- coffee or tea. No energy drinks. Follow up with Dr. Amezcua - Primary Care Physician as scheduled above. Follow up with Dr. Mattson - [facility] as scheduled. Please call his office for the appointment. Contact info outlined above. Return to the ER immediately if with recurrence of symptoms. Pending Studies at Discharge: No Stand-Alone Forms: My [employer], Smoking Cessation Medications and DC Order Prescriptions: New metoprolol succinate 25 mg Tablet Extended Release 24 Hr 25 mg PO QAM Qty: 30 RF: 2 No Action No Known Home Medications RF: 0 Discharge Orders: Discharge Order (Routine); Ordered 09/24/19 Ordered By: Héctor Luna/Other Patient Handouts: Obesity Health Impact, AFL/Afib, Discharge Instructions for Atrial Fibrillation, Stroke Prevent Live W Atrial Fib Admission Data Admit Date/Time: 09/24/19 01:12 Attending Provider: Héctor Murray Admit Provider: Indra Macedo Primary Care Provider: PCP,NO Other Providers: Indra Macedo ; Norberto Young Other Interventions: Discharge Summary Assessment (RN) Last Done: 09/24/19 14:47 DC Date/Time DO NOT enter until pt leaves facility: 09/24/19 15:46
[2019-09-25] MEDS ORDERED: ASPIRIN 81 MG ECTAB PO SCH (09:00)
== END 2019-09-24 15:46 | disposition home or self-care (01) ==
LOC: 2S 22:19 → ED 22:19 → SUATTDRO 09-24 01:12 → 2S 09-24 01:30
DX: I48.0 Paroxysmal atrial fibrillation